=== PATIENT | female | born 1960 | race Two or more races ===

== ENCOUNTER 2023-09-05 09:39 | Emergency (ER) | payer OTHER ==
[~2023-09-05] VITALS: Ht 162.6 cm; Wt 69.9 kg
[2023-09-05] MEDS ORDERED: ANTIVERT25 M2 (09:58)
[2023-09-05] MEDS ORDERED: DEXAMETHASONE 4 MG TABLET PO STA (12:07)
[2023-09-05] MEDS ORDERED: ORPHENADRINE CITRATE 30 MG/ML AMPUL IM STA (12:08)
[2023-09-05] MEDS ORDERED: DEXAMETHASONE SODIUM PHOSPHATE 4 MG/ML VIAL IM STA (12:18)
[2023-09-05] MEDS ORDERED: ORPHENADRINE CITRATE 30 MG/ML AMPUL ONE (12:21)
[2023-09-05] MEDS ORDERED: DEXAMETHASONE SODIUM PHOSPHATE 4 MG/ML VIAL ONE (12:21)
== END 2023-09-05 12:28 | disposition home or self-care (01) ==
LOC: ER 09:40
DX: R42 Dizziness and giddiness (principal)

== ENCOUNTER 2024-06-05 10:19 | Outpatient (CLI) | payer OTHER ==
[~2024-06-05 10:19] MED LIST: ANTIVERT25 M2
== END 2024-06-05 10:32 | disposition home or self-care (01) ==
LOC: MRI 10:19
PROVIDERS: ATTEND Internal Medicine
DX: C64.1 Malignant neoplasm of right kidney, except renal pelvis (principal)
CPT/HCPCS: 74182

== ENCOUNTER 2024-08-05 11:39 | Outpatient (CLI) | payer OTHER | END 2024-08-05 11:40 | disposition home or self-care (01) | LOC: NUCLEAR 11:39 | PROVIDERS: ATTEND Internal Medicine | DX: I87.2 Venous insufficiency (chronic) (peripheral) (principal); I82.401 Acute embolism and thrombosis of unspecified deep veins of right lower extremity ==